=== PATIENT | male | born 1985 | race Two or more races ===

== ENCOUNTER 2025-07-27 00:15 | Emergency (ER) | payer OTHER ==
[2025-07-27 00:35] VITALS: BP 137/81; PULSE 89; RESP 16; TEMP 97.3
== END 2025-07-27 02:45 ==
LOC: EMS 00:15
DX: M79.672 Pain in left foot (principal); Z98.890 Other specified postprocedural states; Z02.89 Encounter for other administrative examinations
CPT/HCPCS: 99283; Z7502